=== PATIENT | female | born 1995 | race African-American/Black ===

== ENCOUNTER 2021-05-08 04:46 | Emergency (ER) | payer BC, MEDICAID ==
[~2021-05-08] VITALS: Ht 177.8 cm; Wt 73.0 kg
[~2021-05-08 04:46] MED LIST: DEPO SHOT
[2021-05-08] MEDS ORDERED: IBUPROFEN 600MG TABLET PO ONE (05:30)
[2021-05-08] MEDS ORDERED: ACETAMINOPHEN 325MG TABLET PO ONE (05:30)
[2021-05-08 05:34] VITALS: BP 110/80
[2021-05-08] MEDS ORDERED: NAPR-1176 MT (05:53)
[2021-05-08] MEDS ORDERED: ACET-2708 MT (05:53)
== END 2021-05-08 06:01 | disposition home or self-care (01) ==
LOC: ER 04:46
DX: M54.2 Cervicalgia (principal); F17.290 Nicotine dependence, other tobacco product, uncomplicated; F12.10 Cannabis abuse, uncomplicated
CPT/HCPCS: 81025; 99283

== ENCOUNTER 2022-03-11 13:37 | Emergency (ER) | payer OTHER, MEDICAID ==
[~2022-03-11] VITALS: Ht 165.1 cm; Wt 90.0 kg
[~2022-03-11 13:37] MED LIST changes: +ACET-2708 MT; +NAPR-1176 MT
[2022-03-11] MEDS ORDERED: BACITRACIN ZINC OINT UDPKT TOP ONE (16:00)
[2022-03-11] MEDS ORDERED: LIDOCAINE HCL 1% 20ML VIAL (Pyxis) INJ INFIL ONE (16:00)
[2022-03-11] MEDS ORDERED: TETANUS, DIPHTHERIA, PERTUSSIS VAC/PF 0.5ML (>10YR OLD) IM ONE (16:00)
[2022-03-11] MEDS ORDERED: [UNRECOGNIZED DRUG - REMARK] TP (17:28)
[2022-03-11] MEDS ORDERED: BO1 TP (17:28)
[2022-03-11] MEDS ORDERED: CEPH500C2 MT (17:28)
[2022-03-11] MEDS ORDERED: T3 PO (17:28)
[2022-03-11] MEDS ORDERED: HYDROCODONE/ACETAMINOPHEN 5/325MG TABLET PO ONE (17:30)
[2022-03-11 17:49] VITALS: BP 122/78
== END 2022-03-11 17:49 | disposition home or self-care (01) ==
LOC: ER 13:37
DX: S61.210A Laceration without foreign body of right index finger without damage to nail, initial encounter (principal); Y08.89XA Assault by other specified means, initial encounter; Y93.89 Activity, other specified; Y92.9 Unspecified place or not applicable
CPT/HCPCS: 12002; 73140; 81025; 90471; 90715; 99283; J3490

== ENCOUNTER 2023-06-04 08:01 | Emergency (ER) | payer MEDICAID ==
[~2023-06-04] VITALS: Ht 177.8 cm; Wt 81.0 kg
[~2023-06-04 08:01] MED LIST changes: +BO1 TP; +CEPH500C2 MT; +T3 PO; +[UNRECOGNIZED DRUG - REMARK] TP
[2023-06-04 08:24] VITALS: O2SAT 100
[2023-06-04] MEDS ORDERED: DOXYCYCLINE HYCLATE 100MG CAPSULE PO ONE (09:30)
[2023-06-04] MEDS ORDERED: CEFTRIAXONE SODIUM 500 MG/VIAL IM ONE (09:30)
[2023-06-04 10:09] LABS: CLARITY URINE CLEAR (CLEAR); COLOR URINE YELLOW (YELLOW); GLUCOSE URINE NEGATIVE (NEGATIVE); KETONES URINE NEGATIVE (NEGATIVE); LEUKOCYTE ESTERASE URINE NEGATIVE (NEGATIVE); NITRITE URINE NEGATIVE (NEGATIVE); OCCULT BLOOD URINE NEGATIVE (NEGATIVE); PROTEIN URINE NEGATIVE (NEGATIVE); SPECIFIC GRAVITY URINE 1.018 (1.005-1.030); UROBILINOGEN URINE 0.2 E.U./dL (0.2-1.0)
[2023-06-04] MEDS ORDERED: DOXY100T2 MT (10:31)
[2023-06-04 10:53] VITALS: BP 121/89; PULSE 79; RESP 19; TEMP 98.1
[2023-06-06 04:09] LABS: CHLAMYDIA TRACHOMATIS NAA Negative (Negative); NEISSERIA GONORRHOEAE NAA Negative (Negative)
== END 2023-06-04 10:52 | disposition home or self-care (01) ==
LOC: ER 08:01
DX: A64 Unspecified sexually transmitted disease (principal); M54.2 Cervicalgia; F12.90 Cannabis use, unspecified, uncomplicated
CPT/HCPCS: 99283; 87491; 87591; 81003; 81025; 96372; J0696

== ENCOUNTER 2025-06-06 01:46 | Emergency (ER) | payer BC, MEDICAID ==
[~2025-06-06] VITALS: Ht 177.8 cm; Wt 76.7 kg
[~2025-06-06 01:46] MED LIST changes: +DOXY100T2 MT
[2025-06-06 02:16] VITALS: BP 110/80; TEMP 37.1; O2SAT 100
[2025-06-06 02:17] VITALS: PULSE 75; RESP 16; O2SAT 100
[2025-06-06 02:50] LABS: CLARITY URINE CLEAR (CLEAR); COLOR URINE YELLOW (YELLOW); GLUCOSE URINE NEGATIVE (NEGATIVE); KETONES URINE TRACE (NEGATIVE); LEUKOCYTE ESTERASE URINE 1+ (NEGATIVE); NITRITE URINE NEGATIVE (NEGATIVE); OCCULT BLOOD URINE NEGATIVE (NEGATIVE); PH URINE 5.5 (4.5-8.0); PROTEIN URINE NEGATIVE (NEGATIVE); SPECIFIC GRAVITY URINE 1.009 (1.005-1.030); UROBILINOGEN URINE 0.2 E.U./dL (0.2-1.0)
[2025-06-06 03:10] LABS: SQUAMOUS EPITHELIAL CELL URINE 1+ /lpf (RARE/1+); WBC URINE 0-2 /hpf (0-2)
[2025-06-06 03:11] LABS: RBC URINE 0-2 /hpf (0-2)
[2025-06-06 03:14] LABS: BACTERIA URINE TRACE
== END 2025-06-06 04:00 | disposition left against medical advice (07) ==
LOC: ER 02:54
DX: M54.50 Low back pain, unspecified (principal); R10.9 Unspecified abdominal pain; Z53.21 Procedure and treatment not carried out due to patient leaving prior to being seen by health care provider
CPT/HCPCS: 81003

== ENCOUNTER 2025-07-31 19:24 | Emergency (ER) | payer BC ==
[~2025-07-31] VITALS: Ht 177.8 cm; Wt 73.0 kg
[2025-07-31 19:30] VITALS: O2SAT 100
[2025-07-31 19:57] VITALS: TEMP 36.9
[2025-07-31] MEDS: SODIUM CHLORIDE 0.9% 1,000 ML IV ONE (20:07)
[2025-07-31] MEDS: ONDANSETRON HCL 4MG/2ML INJ IV ONE (20:22)
[2025-07-31] MEDS: KETOROLAC 15MG/ML VIAL IV ONE (20:23)
[2025-07-31 20:26] LABS: BASOPHILS % 0.3 % (0.0-2.0); EOSINOPHILS % 4.1 % (0.0-5.0); HEMATOCRIT. 35.9 % (36.0-48.0); HEMOGLOBIN. 12.1 g/dL (12.0-16.0); LYMPHOCYTES % 23.3 % (20.0-50.0); MEAN PLATELET VOLUME 7.7 fl (7.4-10.4); MONOCYTES % 8.2 % (2.0-8.0); NEUTROPHILS % 64.1 % (40.0-76.0); PLATELET 306 x1000/uL (130-400); RED BLOOD CELL COUNT 4.07 mill/uL (4.2-5.4); RED CELL DISTRIBUTION WIDTH 13.9 % (11.6-14.6)
[2025-07-31 20:29] LABS: CREATININE 0.7 mg/dL (0.6-1.0); UREA NITROGEN BLOOD 12 mg/dL (9-23)
[2025-07-31 20:31] LABS: ASPARTATE AMINOTRANSFERASE 22 IU/L (<34); BILIRUBIN DIRECT 0.1 mg/dL (<=3.0); BILIRUBIN TOTAL 0.5 mg/dL (0.1-1.0); PROTEIN TOTAL 7.3 g/dL (6.0-8.3)
[2025-07-31 20:38] LABS: GLUCOSE URINE NEGATIVE (NEGATIVE); KETONES URINE NEGATIVE (NEGATIVE); LEUKOCYTE ESTERASE URINE TRACE (NEGATIVE); NITRITE URINE NEGATIVE (NEGATIVE); OCCULT BLOOD URINE NEGATIVE (NEGATIVE); PH URINE 6.0 (4.5-8.0); PROTEIN URINE NEGATIVE (NEGATIVE); SPECIFIC GRAVITY URINE 1.007 (1.005-1.030); UROBILINOGEN URINE 0.2 E.U./dL (0.2-1.0)
[2025-07-31 20:46] LABS: HCG SCREEN NEGATIVE
[2025-07-31 21:08] LABS: *AMPHETAMINES SCREEN URINE NEGATIVE (NEGATIVE); *BARBITURATES SCREEN URINE NEGATIVE (NEGATIVE); *BENZODIAZEPINES SCREEN URINE NEGATIVE (NEGATIVE); *COCAINE SCREEN URINE NEGATIVE (NEGATIVE); METHADONE URINE SCREEN NEGATIVE (NEGATIVE); OPIATES URINE SCREEN NEGATIVE (NEGATIVE)
[2025-07-31 21:09] LABS: CANNABINOID URINE SCREEN PRESUMPTIVE POSITIVE (NEGATIVE); ECSTASY MDMA SCREEN URINE NEGATIVE (NEGATIVE); PHENCYCLIDINE URINE SCREEN NEGATIVE (NEGATIVE)
[2025-07-31 21:43] LABS: CLARITY URINE SL HAZY (CLEAR); COLOR URINE STRAW (YELLOW)
[2025-07-31 21:44] LABS: BACTERIA URINE TRACE; RBC URINE NONE SEEN /hpf (0-2); SQUAMOUS EPITHELIAL CELL URINE 1+ /lpf (RARE/1+)
[2025-07-31] MEDS ORDERED: CEPH250C2 MT (23:52)
[2025-08-01 00:21] VITALS: BP 108/65; PULSE 76; RESP 16; O2SAT 99
== END 2025-08-01 00:33 | disposition home or self-care (01) ==
LOC: ER 19:24
DX: N39.0 Urinary tract infection, site not specified (principal); R10.20 Pelvic and perineal pain unspecified side; F20.9 Schizophrenia, unspecified; F17.200 Nicotine dependence, unspecified, uncomplicated; F12.90 Cannabis use, unspecified, uncomplicated; Z79.899 Other long term (current) drug therapy
CPT/HCPCS: 80076; 80305; 80048; 81003; 81025; 84703; 83690; 85025; 36415; 74176; 93976; 76830; 76856; 96361; 96374; 96375; 99285; J1885; J2405; J7030; Z7610